=== PATIENT | female | born 1995 | race Caucasian/White ===

== ENCOUNTER 2016-10-28 20:08 | Emergency (ER) | payer OTHER ==
[2016-10-28 20:25] VITALS: TEMP 97.5; O2SAT 98
[2016-10-28] MEDS ORDERED: NS 1,000 ML IV ONE ×2 (20:44→21:56)
[2016-10-28 20:55] LABS: % IMMATURE GRANULYOCYTES 0.2 % (0.0-1.1); ABSOLUTE IMMATURE GRANULOCYTES 0.02 10^3/uL (0.00-0.10); ADD DIFF? NO; ADD MORPH? NO; ADD SCAN? NO; ATYPICAL LYMPHOCYTE FLAG 0 (0-99); FRAGMENT RBC FLAG 0 (0-99); HEMATOCRIT 37.4 % (38.0-47.0); HEMOGLOBIN 12.3 g/dL (12.6-16.3); LEFT SHIFT FLG 0 (0-99); LIPEMIA HEMOLYSIS FLAG 80 (0-99); MEAN CELL HEMOGLOBIN 28.5 pg (27.9-34.1); MEAN CELL HEMOGLOBIN CONCENTR. 32.9 g/dL (32.4-36.7); MEAN CELL VOLUME 86.8 fL (81.5-99.8); MEAN PLATELET VOLUME 11.7 fL (8.7-11.7); PLATELET CLUMPS FLAG 0 (0-99); PLATELET COUNT 248 10^3/uL (150-400); RED BLOOD CELL COUNT 4.31 10^6/uL (4.18-5.33); RED CELL DISTRIBUTION WIDTH 13.3 % (11.5-15.2)
--- NOTE | 2016-10-28 21:57 | EDPHY ---
H & P Stated Complaint: Ankle Lac Time Seen by Provider: 10/28/16 21:56 HPI/ROS: HPI: This is a 21-year-old female who presents with Chief Complaint: Left ankle laceration Location: Left medial ankle Quality: Laceration Duration: 1 hour prior to arrival Signs and Symptoms: + bleeding, no radiation, no numbness, no weakness, no tingling, no incontinence, no decreased range of motion Timing: Sudden Severity: Moderate Context: Patient was walking outside in her sandals and accidentally cut her ankle on a piece of glass. Apply direct pressure with transient relief of bleeding. Tetanus is up-to-date. Modifying Factors: Direct pressure Comment: ROS: Constitutional: No fever, no chills, no weight loss Eyes: No blurred vision Respiratory: No shortness of breath, no cough Cardiovascular: No chest pain Gastrointestinal: No nausea, no vomiting no diarrhea Genitourinary: No dysuria Extremities: No myalgias Neurologic: No weakness, no numbness Skin: No rashes Hematologic: No bruising, no bleeding MEDICAL/SURGICAL/SOCIAL HISTORY: Generally healthy. Source: Patient - Personal History LMP (Females 10-55): 8-14 Days Ago Current Tetanus Diphtheria and Acellular Pertussis (TDAP): Yes - Medical/Surgical History Hx Asthma: No Hx Chronic Respiratory Disease: No Hx Diabetes: No Hx Cardiac Disease: No Hx Renal Disease: No Hx Cirrhosis: No Hx Alcoholism: No Hx HIV/AIDS: No Hx Splenectomy or Spleen Trauma: No Other PMH: Denies - Social History Smoking Status: Never smoked - Physical Exam Exam: CONSTITUTIONAL: Pleasant young adult white female, awake and alert, no obvious distress HEENT: Atraumatic and normocephalic, PERRL, EOMI. Tympanic membranes clear. . Oropharynx clear, no exudate and moist pink mucosa. Airway patent. No lymphadenopathy. No meningismus. Cardiovascular: Normal S1/S2, regular rate, regular rhythm, without murmur rub or gallop. PULMONARY/CHEST: Symmetrical and nontender. Clear to auscultation bilaterally Good air movement. No accessory muscle usage. ABDOMEN: Soft, nondistended, nontender, no rebound, no guarding, no peritoneal signs, no masses or organomegaly. No CVAT. EXTREMITIES: 2/2 pulses, left medial ankle 2 cm linear laceration; no active bleeding. Ankle has full range of motion. Light touch sensation and good capillary refill intact. no clubbing, no cyanosis or edema. NEUROLOGICAL: no focal neuro deficits. GCS 15. SKIN: Warm and dry, no erythema. no rash. Good capillary refill. Constitutional: Initial Vital Signs Temperature (C) 36.4 C 10/28/16 20:23 Heart Rate 145 H 10/28/16 20:23 Respiratory Rate 18 10/28/16 20:23 Blood Pressure 84/69 L 10/28/16 20:23 O2 Sat (%) 98 10/28/16 20:23 O2 Delivery Mode Room Air Allergies/Adverse Reactions: No Known Allergies Allergy (Unverified 10/28/16 20:23) Home Medications: Medication Instructions Recorded NK [No Known Home Meds] 10/28/16 Medical Decision Making - Diagnostics Imaging Results: Imaging Impressions Foot X-Ray 10/28/16 20:37 Impression: No convincing evidence of radiopaque foreign body. Procedures: Procedure: Artery injury repair. Verbal consent was obtained from the patient. The laceration on the anterior tibial artery branch most likely medial plantar artery was repaired with # 2, 6- 0 PDS and Surgifoam. Good hemostasis was achieved. The procedure was performed by myself. Procedure: Laceration repair. Verbal consent was obtained from the patient. The 4.5 cm complex deep laceration on the left medial malleolus was anesthetized in the usual fashion using 10 mL 1% Lidocaine with epinephrine. The wound was irrigated, draped and explored to its base with a gloved finger. The medial plantar artery was involved; [address] along with Surgicel. No tendon injury was identified. The wound was repaired with #8, 6-0 Prolene in simple interrupted pattern. Good hemostasis was achieved. Patient tolerated procedure well. The procedure was performed by myself. ED Course/Re-evaluation: X-rays, labs, IV fluids, wound care, laceration repair X-rays were repair no fracture Anterior tibial branch most likely Medial plantar artery injury occurred. Artery was repaired with 2 sutures and Surgicel. Laceration was repaired with 8 sutures. Xeroform, 4 x 4, Coban was placed Monitored in the ER x4 hours without resolution of bleeding Patient was put into a walking boot advised partial weight-bearing; toe-touch only; use crutches Follow up with Orthopedics No signs of neurovascular compromise/tenting of skin/compartment syndrome/ extremities and joints examined above and below area of concern and are neurovascularly intact. Differential Diagnosis: Differential diagnosis includes but is not limited to tendon injury, nerve injury, contusion, sprain. - Data Points Laboratory Results: Laboratory Results 10/28/16 20:40 10/28/16 20:40 WBC 9.60 10^3/uL H 10^3/uL (3.80-9.50) RBC 4.31 10^6/uL 10^6/uL (4.18-5.33) Hgb 12.3 g/dL L g/dL (12.6-16.3) Hct 37.4 % L % (38.0-47.0) MCV 86.8 fL fL (81.5-99.8) MCH 28.5 pg pg (27.9-34.1) MCHC 32.9 g/dL g/dL (32.4-36.7) RDW 13.3 % % (11.5-15.2) Plt Count 248 10^3/uL 10^3/uL (150-400) MPV 11.7 fL fL (8.7-11.7) Neut % (Auto) 63.0 % % (39.3-74.2) Lymph % (Auto) 28.2 % % (15.0-45.0) [place] % (Auto) 7.3 % % (4.5-13.0) Eos % (Auto) 0.8 % % (0.6-7.6) Baso % (Auto) 0.5 % % (0.3-1.7) Nucleat RBC Rel Count 0.0 % % (0.0-0.2) Absolute Neuts (auto) 6.04 10^3/uL 10^3/uL (1.70-6.50) Absolute Lymphs (auto) 2.71 10^3/uL 10^3/uL (1.00-3.00) Absolute Monos (auto) 0.70 10^3/uL 10^3/uL (0.30-0.80) Absolute Eos (auto) 0.08 10^3/uL 10^3/uL (0.03-0.40) Absolute Basos (auto) 0.05 10^3/uL 10^3/uL (0.02-0.10) Absolute Nucleated RBC 0.00 10^3/uL 10^3/uL (0-0.01) Immature Gran % 0.2 % % (0.0-1.1) Immature Gran # 0.02 10^3/uL 10^3/uL (0.00-0.10) Medications Given: Discontinued Medications Sodium Chloride (Ns) 1,000 mls @ 0 mls/hr IV ONCE ONE PRN Reason: Wide Open Stop: 10/28/16 20:45 Last Admin: 10/28/16 20:25 Dose: 1,000 mls Sodium Chloride (Ns) 1,000 mls @ 0 mls/hr IV EDNOW ONE; Wide Open PRN Reason: Protocol Stop: 10/28/16 21:57 Last Admin: 10/28/16 22:24 Dose: 1,000 mls Ondansetron HCl (Zofran) 4 mg IVP EDNOW ONE Stop: 10/28/16 22:26 Last Admin: 10/28/16 22:25 Dose: 4 mg Departure - Departure Disposition: Home, Routine, Self-Care Clinical Impression: Laceration of left plantar artery of foot Qualifiers: Encounter type: initial encounter Qualified Code(s): S95.112A - Laceration of plantar artery of left foot, initial encounter Laceration of left foot without foreign body Qualifiers: Encounter type: initial encounter Qualified Code(s): S91.312A - Laceration without foreign body, left foot, initial encounter Condition: Good Instructions: Laceration (ED) Additional Instructions: Keep the dressing in place until seen by orthopedics. Take ibuprofen 600-800 mg every 6-8 hours with food as needed for pain and inflammation. Wear the walking boot and use crutches; partial weight bearing status; toe touch only; until seen by Orthopedics. Follow up with Orthopedics in 2-3 days at which time they will evaluate and recommend with you if conservative management versus surgery is indicated. The x-rays obtained in the emergency department today demonstrate no evidence of an obvious fracture. Sometimes fractures are not obvious on the initial set of x-rays performed in the ED. For this reason, you should have repeat x-rays performed in 7-10 days if you are having any pain exclude the possibility of an occult fracture. Referrals: Capo Morales MD [Medical Doctor] - 1-2 days without fail
[2016-10-28] MEDS ORDERED: ONDANSETRON 4 MG/2 ML VIAL ONE (22:21)
[2016-10-28] MEDS ORDERED: ONDANSETRON 4 MG/2 ML VIAL IVP ONE (22:25)
[2016-10-29 00:20] VITALS: BP 108/68; PULSE 87; RESP 16
== END 2016-10-29 00:20 | disposition home or self-care (01) ==
DX: S95.112A Laceration of plantar artery of left foot, initial encounter (principal); E86.9 Volume depletion, unspecified; W25.XXXA Contact with sharp glass, initial encounter; Y99.8 Other external cause status; Y93.01 Activity, walking, marching and hiking
CPT/HCPCS: 96374; J2405; L4386